=== PATIENT | female | born 1965 | race Caucasian/White ===

== ENCOUNTER 2017-11-09 00:40 | Emergency (ER) | payer BC ==
[~2017-11-09] VITALS: Ht 162.6 cm; Wt 53.7 kg
[~2017-11-09 00:40] MED LIST: ALBU6.7H INH; GUAI100S6 PO; MEDR4PAK3 PO; Z.0.BCPILL PO
[2017-11-09 00:45] VITALS: BP 177/106; PULSE 126; RESP 20; TEMP 98; O2SAT 100
[2017-11-09 01:16] VITALS: BP 177/106; PULSE 126; RESP 24; TEMP 98; O2SAT 100
[2017-11-09] MEDS ORDERED: LORazepam 2 MG/ML VIAL IV PUSH ONE (01:45)
[2017-11-09] MEDS ORDERED: SODIUM CHLOR 0.9% 1000 ML INJ 1,000 ML IV ONE (01:45)
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
[2017-11-09] MEDS ORDERED: AMLO2.5T PO (01:51)
[2017-11-09 02:00] VITALS: BP 159/99; PULSE 124; RESP 22; O2SAT 100
[2017-11-09 02:11] LABS: BILIRUBIN, URINE NEG (NEG); BLOOD, URINE NEG (NEG); GLUCOSE,URINE NEG (NEG); KETONE, URINE NEG (NEG); NITRITE,URINE NEG (NEG); URINE COLOR YELLOW (YELLW/STRAW); URINE LEUKOCYTE ESTERASE NEG (NEG)
[2017-11-09 02:28] LABS: AUTOMATED NEUTROPHIL # 2.7 TH/MM3 (1.8-7.7); BASOPHIL % 0.8 % (0.0-2.0); EOSINOPHIL # 0.1 TH/MM3 (0-0.4); EOSINOPHIL % 1.3 % (0.0-4.0); HEMATOCRIT 35.7 % (35.0-46.0); HEMOGLOBIN 11.5 GM/DL (11.6-15.3); MEAN CORPUSCULAR HEMOGLOBIN 28.8 PG (27.0-34.0); MEAN CORPUSCULAR HGB CONC 32.3 % (32.0-36.0); MEAN PLATELET VOLUME 7.7 FL (7.0-11.0); MONO % 5.1 % (0.0-8.0); MONOCYTE # 0.3 TH/MM3 (0-0.9); NEUT % 53.8 % (16.0-70.0); PLATELET COUNT 276 TH/MM3 (150-450); RED BLOOD COUNT 4.01 MIL/MM3 (4.00-5.30); RED CELL DISTRIBUTION WIDTH 16.1 % (11.6-17.2); WHITE BLOOD COUNT 5.1 TH/MM3 (4.0-11.0)
[2017-11-09 02:31] LABS: WBC, URINE 0-2 /hpf (0-5)
[2017-11-09 02:32] LABS: SQUAMOUS EPITHELIAL CELL URINE 0-5 /hpf (0-5)
[2017-11-09 02:38] LABS: CHLORIDE 107 MEQ/L (98-107); SODIUM (NA) 142 MEQ/L (136-145)
[2017-11-09 02:42] LABS: CALCIUM 8.2 MG/DL (8.5-10.1)
[2017-11-09 02:43] LABS: ALBUMIN 3.9 GM/DL (3.4-5.0); BLOOD UREA NITROGEN 10 MG/DL (7-18); GLUCOSE,RANDOM 106 MG/DL (74-106)
[2017-11-09 02:46] LABS: ALT (GPT) 22 U/L (10-53); AST (GOT) 21 U/L (15-37); CREATININE 0.66 MG/DL (0.50-1.00); GLOMERULAR FILTRATION RATE 94 ML/MIN (>89)
[2017-11-09 02:47] LABS: TOTAL BILIRUBIN ADULT 0.2 MG/DL (0.2-1.0); TOTAL PROTEIN 7.9 GM/DL (6.4-8.2)
[2017-11-09 02:49] LABS: ALKALINE PHOSPHATASE 51 U/L (45-117)
[2017-11-09 03:52] VITALS: BP 162/102; PULSE 127; RESP 22; O2SAT 99
== END 2017-11-09 04:13 | disposition home or self-care (01) ==
LOC: PHED 00:40
DX: T65.93XA Toxic effect of unspecified substance, assault, initial encounter (principal); F10.129 Alcohol abuse with intoxication, unspecified; Y92.814 Boat as the place of occurrence of the external cause; I10 Essential (primary) hypertension
CPT/HCPCS: 80053; 80307; 81001; 84443; 85025; 96374; 99284; J2060; J7030